=== PATIENT | male | born 1970 | race Caucasian/White ===

== ENCOUNTER 2023-08-15 11:52 | Day surgery (SDC) | payer BC ==
[~2023-08-15] VITALS: Ht 175.3 cm; Wt 78.1 kg
[2023-08-15 12:27] VITALS: BP 115/78
--- NOTE | 2023-08-15 13:59 | NUR ---
08/15/23 Fabienne Randall 1341- PT ARRIVES TO PACU AWAKE BUT DROWSY. DENIES PAIN AND NAUSEA. LEFT LATERAL POSITION. ABD FLAT AND SOFT, ENCOURAGED TO PASS GAS. LR INFUSING TO RH IV, O2 AT 2L PER NC. ALL MONITORS IN PLACE. 1345- BP 89/60- 1ST LITER LR COMPLETE, 2ND LITER STARTED AT THIS TIME. WILL CONTINUE TO MONITOR. 1355- PT SATS 100% ON 2L PER NC, MOVED TO ROOM AIR AT THIS TIME. PT RESTING INTERMITTENTLY. NO SIGNS OF DISTRESS. NO COMPLAINTS AT THIS TIME.
[2023-08-15 14:28] VITALS: BP 107/65
--- NOTE | 2023-08-16 19:08 | OR ---
[facility] [address], [place] [address] Signed DATE OF OPERATION: 08/15/2023 SURGEON: Pricila Chowdhury MD PREOPERATIVE DIAGNOSIS: Colon screening. POSTOPERATIVE DIAGNOSIS: Normal colon to cecum. PROCEDURE: Total colonoscopy to cecum. ANESTHESIA: Intravenous sedation, fentanyl 100 mcg, Versed 6 mg. INDICATIONS FOR THE PROCEDURE: This 52-year-old white man is a patient of Dr. Todd Tubbs. He is referred for colon screening. He has no symptoms of bleeding, diarrhea, or constipation and no family history of colon cancer. The patient originally had right groin pain with concerns for possible hernia. Clinical examination and ultrasound could not confirm a hernia. He continues to have no sign of hernia and now has no right groin pain. He is admitted at this time to undergo colonoscopy for screening. He understands the risk of bleeding, infection, and perforation. FINDINGS: The prep was excellent. Complete colonoscopy was undertaken to the cecum. Full intubation of the cecum was accomplished. There was no evidence of polyps, diverticular formation, colitis, or cancer. DESCRIPTION OF PROCEDURE: The patient was brought to the endoscopy suite and placed in lateral decubitus position given intravenous sedation to the point of slurred speech and nystagmus. Digital rectal examination was normal. An Olympus video colonoscope was passed into the rectum and manipulated throughout the colon ultimately intubating the cecum itself. The ileocecal valve and appendiceal orifice were normal. Scope was withdrawn from that point. Examination throughout showed no sign of abnormality, specifically no polyps, diverticular formation, colitis, or cancer. Retroflexed view was normal as well. The scope was removed, and the patient Electronically Signed By: PRICILA CHOWDHURY MD 08/16/23 1908 PATIENT NAME: ZURI KAMARA OPERATIVE REPORT DATE OF : 70 REPORT #: [id number] PHYSICIAN: PRICILA CHOWDHURY MD PCP: TODD TUBBS MD REPORT IS CONFIDENTIAL AND NOT TO BE RELEASED WITHOUT AUTHORIZATION [facility] [address] [place] [id number] Signed taken to the recovery room in good condition. CONCLUDING DIAGNOSIS: Normal colon to cecum. PLAN: Recommend repeat colonoscopy in 10 years or sooner if symptoms should develop. He will return to the ongoing care of Dr. Tubbs. MD BOYD Zhang/MODL /[id number] cc: Todd Tubbs MD Copies: TODD TUBBS MD ~ Electronically Signed By: PRICILA CHOWDHURY MD 08/16/23 1908 PATIENT NAME: ZURI KAMARA OPERATIVE REPORT DATE OF : 70 REPORT #: [id number] PHYSICIAN: PRICILA CHOWDHURY MD PCP: TODD TUBBS MD REPORT IS CONFIDENTIAL AND NOT TO BE RELEASED WITHOUT AUTHORIZATION
== END 2023-08-15 14:30 | disposition home or self-care (01) ==
LOC: OPS 11:52 → DS 14:00 → OPS 14:30
PROVIDERS: ATTEND Surgery
PROC: 0DJD8ZZ Inspection of Lower Intestinal Tract, Via Natural or Artificial Opening Endoscopic (ICD-10-PCS; principal; 2023-08-15 13:00)
DX: Z12.11 Encounter for screening for malignant neoplasm of colon (principal)
CPT/HCPCS: 99153; G0500; J2250; J3010